=== PATIENT | female | born 1945 | race Caucasian/White ===

== ENCOUNTER → 2017-01-10 | Outpatient (CLI) | payer MEDICARE ==
--- NOTE | 2017-01-10 12:59 | MR ---
MRI of the brain with and without contrast HISTORY: Headaches. TECHNIQUE: T1-weighted sagittal, T2, FLAIR, and diffusion axial, postcontrast T1 axial and coronal vi ews of the brain are submitted. CONTRAST: 10 mL MultiHance FINDINGS: There is no evidence of acute ischemia. The ventricles, basal cisterns, and sulci overlying the co nvexities are consistent with the patient's age. There is no mass effect or enhancing mass. Craniocervical junction maintained. Sella turcica has a normal appearance. No evidence of cerebellopo ntine angle mass. Intraorbital structures have a normal appearance. Changes of chronic sinusitis noted. WHITE MATTER: There are approximately 20 white matter lesions with the largest seen in the right parietal lobe sawyer uring 1 cm. No callosal lesions. No lesions perpendicular to the ventricular system. No enhancing les ions. Next IMPRESSION: 1. No acute intracranial process. 2. Nonspecific white matter changes. Differential diagnosis includes remote microvascular ischemia, d emyelinating process not excluded.
== END ==
LOC: RADMRIMAIN 11:29
PROVIDERS: ATTEND Psychiatry & Neurology Pain Medicine
DX: R90.82 White matter disease, unspecified (principal); H93.19 Tinnitus, unspecified ear; R53.83 Other fatigue
CPT/HCPCS: 70553; A9577

== ENCOUNTER → 2017-03-12 | Outpatient (CLI) | payer MEDICARE ==
[2017-03-12 20:34] LABS: Appearance,CSF Clear
[2017-03-14 13:45] LABS: Immunoglobulin G 918 mg/dL (700 - 1600)
== END | disposition home or self-care (01) ==
LOC: LABWHC1 11:02
PROVIDERS: ATTEND Psychiatry & Neurology Pain Medicine
DX: H53.8 Other visual disturbances (principal); R42 Dizziness and giddiness; R90.82 White matter disease, unspecified
CPT/HCPCS: 36415; 82040; 82042; 82784; 83873; 83916; 84157; 87476; 89050

== ENCOUNTER → 2023-02-14 | Outpatient (CLI) | payer MEDICARE ==
--- NOTE | 2023-02-14 10:22 | CT ---
EXAMINATION TYPE: CT brain wo con DATE OF EXAM: 02/14/2023 COMPARISON: MRI brain 01/10/2017 HISTORY: Left sided facial and arm numbness, visual disturbances and dizziness x1 week ago. CT DLP: 1084.8 mGycm Automated exposure control for dose reduction was used. FINDINGS: Moderate generalized degenerative change. Faint periventricular low attenuation nonspecific but most of "remote white matter microvascular disease. A punctate low density in the left basal ganglia compatible with remote lacunar infarct. Craniocervical junction maintained. Sella turcica is normal. Calvarium intact. No significant changes of sinusitis. Orbits are symmetric. IMPRESSION: DEGENERATIVE AND REMOTE MICROVASCULAR ISCHEMIC CHANGE WITH NO EVIDENCE OF ACUTE HEMORRHAGE OR MASS EF FECT.
== END | disposition home or self-care (01) ==
LOC: RADCTMAIN 09:45
PROVIDERS: ATTEND Family Medicine
DX: I67.82 Cerebral ischemia (principal); R42 Dizziness and giddiness; R51.9 Headache, unspecified
CPT/HCPCS: 70450

== ENCOUNTER → 2023-02-18 | Outpatient (CLI) | payer MEDICARE ==
--- NOTE | 2023-02-18 11:16 | US ---
EXAMINATION TYPE: US carotid duplex BILAT DATE OF EXAM: 02/18/2023 COMPARISON: NONE CLINICAL INDICATION: Female, 78 years old with history of R42 DIZZINESS AND GIDDINESS; tia TECHNIQUE: Carotid duplex ultrasound examination. Indirect Doppler criteria was utilized. FINDINGS: EXAM MEASUREMENTS: RIGHT: Peak Systolic Velocity (PSV) cm/sec ----- Right CCA: 70.6 ----- Right ICA: 136 ----- Right ECA: 67.7 ICA/CCA ratio: 1.9 RIGHT: End Diastole cm/sec ----- Right CCA: 14 ----- Right ICA: 37.2 ----- Right ECA: 0 LEFT: Peak Systolic Velocity (PSV) cm/sec ----- Left CCA: 79.3 ----- Left ICA: 137.5 ----- Left ECA: 78.3 ICA/CCA ratio: 1.7 LEFT: End Diastole cm/sec ----- Left CCA: 16.9 ----- Left ICA: 43 ----- Left ECA: 0 VERTEBRALS (direction of flow): Right Vertebral: Antegrade Left Vertebral: Antegrade Rhythm: Normal AUDIT PRACTICE INTERN NOTES: No significant stenosis seen IMPRESSION: 50-69% stenosis of the bilateral carotid bifurcations by peak systolic velocity. Criteria for Assigning % of Stenosis / Diameter reduction (Estimation based on the indirect measurements of the internal carotid artery velocities (ICA PSV). 1. Normal (no stenosis)=ICA PSV < 125 cm/s: ratio < 2.0: ICA EDV<40 cm/s. 2. Less than 50% stenosis=ICA PSV < 125 cm/s: ratio < 2.0: ICA EDV<40 cm/s. 3. 50 to 69% stenosis=ICA PSV of 125 to 230 cm/s: ration 2.0 ? 4.0: ICA EDV 40-100 cm/s. 4. Greater than 70% stenosis to near occlusion= ICA PSV > 230 cm/s: ratio > 4.0: ICA EDV > 100 cm/s. 5. Near occlusion= ICA PSV velocities may be low or undetectable: variable ratio and ICA EDV. 6. Total occlusion=unable to detect flow.
== END | disposition home or self-care (01) ==
LOC: RADUSWWP 10:27
PROVIDERS: ATTEND Family Medicine
DX: I65.23 Occlusion and stenosis of bilateral carotid arteries (principal)
CPT/HCPCS: 93880

== ENCOUNTER → 2024-07-10 | Outpatient (CLI) | payer MEDICARE ==
--- NOTE | 2024-07-11 19:47 | US ---
EXAMINATION TYPE: US carotid duplex BILAT DATE OF EXAM: 07/10/2024 COMPARISON: 02/18/23 CLINICAL INDICATION: Female, 79 years old with history of R42 DIZZINESS AND GIDDINESS; Additional History: .... TECHNIQUE: Grayscale, color Doppler and spectral Doppler evaluation of the bilateral carotid systems and vertebral arteries. Indirect Doppler criteria was utilized. FINDINGS: EXAM MEASUREMENTS: RIGHT: Peak Systolic Velocity (PSV) cm/sec ----- Right CCA: 80.1 ----- Right ICA: 114 ----- Right ECA: 95.8 ICA/CCA ratio: 1.4 RIGHT: End Diastole cm/sec ----- Right CCA: 13.7 ----- Right ICA: 29.2 ----- Right ECA: 7.5 LEFT: Peak Systolic Velocity (PSV) cm/sec ----- Left CCA: 100 ----- Left ICA: 137 ----- Left ECA: 86.4 ICA/CCA ratio: 1.4 LEFT: End Diastole cm/sec ----- Left CCA: 17.4 ----- Left ICA: 24.3 ----- Left ECA: 6.2 VERTEBRALS (direction of flow): Right Vertebral: Antegrade Left Vertebral: Antegrade Rhythm: Normal GUEST SERVICE AGENT NOTES: Intimal thickening seen bilaterally. Elevated velocity within Left ICA Color Doppler imaging shows patency with blood flow throughout the carotid artery. IMPRESSION: 1. Elevated left internal carotid artery velocity compatible with moderate stenosis between 50 and 69 %. Criteria for Assigning % of Stenosis / Diameter reduction (Estimation based on the indirect measurements of the internal carotid artery velocities (ICA PSV). 1. Normal (no stenosis)=ICA PSV < 125 cm/s: ratio < 2.0: ICA EDV<40 cm/s. 2. Less than 50% stenosis=ICA PSV < 125 cm/s: ratio < 2.0: ICA EDV<40 cm/s. 3. 50 to 69% stenosis=ICA PSV of 125 to 230 cm/s: ration 2.0 ? 4.0: ICA EDV 40-100 cm/s. 4. Greater than 70% stenosis to near occlusion= ICA PSV > 230 cm/s: ratio > 4.0: ICA EDV > 100 cm/s. 5. Near occlusion= ICA PSV velocities may be low or undetectable: variable ratio and ICA EDV. 6. Total occlusion=unable to detect flow. [facility], , 07/11/2024 7:45 PM
== END | disposition home or self-care (01) ==
LOC: RADUSWWP 13:39
PROVIDERS: ATTEND Psychiatry & Neurology Neurology
DX: I65.23 Occlusion and stenosis of bilateral carotid arteries (principal); R42 Dizziness and giddiness
CPT/HCPCS: 93880